=== PATIENT | male | born 1965 | race African-American/Black ===

== ENCOUNTER → 2017-01-31 | Day surgery (SDC) | payer MEDICAID ==
[~2017-01-31] VITALS: Ht 180.3 cm; Wt 145.4 kg
[~2017-01-31] MED LIST: ALPR.5 PO; BUPIVACAINE HCL PF 0.5% 30 ML VIAL NERV BLOCK ONE; BUPIVACAINE HCL PF 0.5% 30 ML VIAL ONE; DEXT 5%-NACL 0.45% 1000 ML INJ 1,000 ML IV SCH; DICL75TA PO; FAMOTIDINE 20 MG/2 ML VIAL ONE; IBUP800T23 PO; IBUPROFEN 800 MG TAB ONE; LACTATED RINGER'S 1000 ML INJ 1,000 ML ONE; METOCLOPRAMIDE HCL 10 MG/2 ML VIAL ONE; MIDAZOLAM HCL 5 MG/ML VIAL (1 ML) ONE; ONDANSETRON HCL 4 MG/2 ML VIAL ONE; PERC5TAB12 PO; POVIDONE IODINE 10% OINT 1 PACKET TOPICAL ONE; PROPOFOL 200 MG/20 ML AMP IV ONE; RANI150T PO; SODIUM CHLORIDE 0.9% FLUSH 5 ML FLUSH IVF PRN; SODIUM CHLORIDE 0.9% FLUSH 5 ML FLUSH IVF SCH; ceFAZolin 2 GM PREMIX 50 ML ONE
[2017-01-31 09:12] VITALS: BP 120/79; PULSE 61; RESP 24; TEMP 98.3; O2SAT 97
[2017-01-31 09:37] LABS: HEMATOCRIT 41.8 % (39.0-51.0); MEAN CELL VOLUME 93.3 FL (80.0-100.0); MEAN CORPUSCULAR HEMOGLOBIN 30.9 PG (27.0-34.0); PLATELET COUNT 166 TH/MM3 (150-450); RED BLOOD COUNT 4.48 MIL/MM3 (4.50-5.90); RED CELL DISTRIBUTION WIDTH 13.7 % (11.6-17.2); REVIEW FLAG FINAL; WHITE BLOOD COUNT 5.9 TH/MM3 (4.0-11.0)
[2017-01-31 11:00] VITALS: PULSE 48
--- NOTE | 2017-01-31 11:52 | HP.UPD ---
H&P Update Date: Jan 31, 2017 Note The Pre-Admit History and Physical Examination regarding the above named patient was reviewed (including, but not limited to, vital signs, medications, allergies, co-morbid conditions), and upon re-examination it is noted that: Indicated with "X" x - the patient's condition has not significantly changed since the last examination. [] - the patient's condition has changed since the last examination. Changes: Tiffanie Garg MD Jan 31, 2017 11:52
--- NOTE | 2017-01-31 16:23 | HHI.PR ---
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 Four-corner fusion of the right wrist with insertion of k-wire. Complications: n/a Specimen(s) removed: n/a Estimated blood loss: 10mL Anesthesia: General Drains: None Tourniquet time (min at mmHg) 148 minutes at 250mmHg, 15 minute break, 42 minutes at 250mmHg Patient to: PACU Patient Condition: Good Date/Time of Procedure: SEE SURGICAL CARE RECORD Ester Reynolds Jan 31, 2017 16:23
[2017-01-31 16:36] VITALS: PULSE 89
[2017-01-31 17:15] VITALS: PULSE 82; TEMP 98.5
[2017-01-31 18:00] VITALS: BP 130/72; PULSE 79; RESP 16; O2SAT 99
--- NOTE | 2017-01-31 23:34 | MP ---
cc: ZANDER SANTIAGO MD DATE OF SURGERY 01/31/17 PREOPERATIVE DIAGNOSIS 1. 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 2. Right carpal tunnel syndrome. POSTOPERATIVE DIAGNOSIS 1. 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 2. Right carpal tunnel syndrome. PROCEDURE 1. Four corner fusion of the right wrist with autograft. 2. Open release of the right carpal tunnel ANESTHESIA General SURGEON Mey Santiago MD SEC[employer] GUARDS DISPATCHER Yaritza Reynolds PA-C INDICATIONS A 51 year old male with injury to the scaphoid causing collapse of the wrist. This was most likely a nonunion. There was a significant amount of arthrosis. At the completion of the procedure, the four bones had been fused with autograft. Tourniquet time was 2 hours and 28 minutes with a 15-minute break followed by 42 minutes at 250 mmHg. PROCEDURE IN DETAIL The patient was seen preoperatively where the sites and side were identified and marked. The patient was then taken to the operating room, placed in a supine position. His identity was checked against the arm band and the consent form, site and side confirmed, time-out called prior to beginning the procedure. The right upper extremity was prepped with Hibiclens and draped in the usual sterile fashion. The area to be incised was outlined with a marking pen as a longitudinal incision over the carpal tunnel just to the ulnar side of the midline as well as a curvilinear incision over the scaphoid as well as the wrist in the area of the lunate. The arm was exsanguinated. The tourniquet inflated to 250 mmHg Attention was first turned to the carpal tunnel where an incision was made down through the skin down to the subcutaneous tissue down to the palmar fascia. Distally a small hole was poked in the palmar fascia using the ulnar artery as a guide. The Guyon's canal was released. The ulnar artery and nerve were retracted ulnarly. Median nerve retracted medially and, using the ring finger as a guide, the transverse carpal ligament was divided. Once the forearm fascia was reached, the scissor was kept in a slightly open position. Using the push technique, released for several centimeters into the distal forearm. The median nerve was then carefully from the carpal tunnel. The wound was then closed with running 4-0 nylon suture. Attention was then turned to the dorsal aspect of the wrist where an incision was made down through the skin down to the subcutaneous tissue exposing the scaphoid which was then removed in piecemeal. The area over the perilunate area was then debrided of scar tissue and the cortical cancellus bone was denuded, four of the four bones. The capitate lunate, hamate and triquetrum. Once they were completely denuded including articulations between the triquetrum and the lunate, the capitate and hamate, they were fixed with an 0.062 K-wire. The reamer was then used to ream an area for the plate. The plate was then fit into place, held in place with the K-wires. Just prior to placing the plate, the bone graft which has been harvested previously was placed into the areas to be fused. The screws were then placed, checked with the mini C-arm. There was excellent fixation. The area was infiltrated with Bupivacaine 0.5% plain. The wounds were closed with Vicryl to the deep layers and nylon to the skin. Tourniquet was then released after 42 minutes. ADditionally, there had been 148 minutes during the procedure where the tourniquet was let down and, after 15 minutes, the arm was elevated and the tourniquet was placed back up. Once the wounds were closed, the tourniquet was released. Pressure was applied. After several minutes, there was no evidence of any oozing. A dressing was applied using povidone-iodine ointment, Adaptic, Telfa, 4x4s, fluffy gauze hand wrap and splint. The patient was then taken from the operating room to the recovery room in satisfactory condition having tolerated the procedure well. Postoperative instructions include keeping the arm elevated, keeping it clean and dry and returning in several days for follow up. The patient was given a right upper extremity block prior to the surgery for postoperative pain. MD TEO Whitten/ /4:39 PM /11:20 PM
--- NOTE | 2017-02-02 10:14 | EKG ---
Date Performed: 01/31/2017 Time Performed: 09:44:18 PTAGE: 51 years EKG: Sinus bradycardia. Rightward axis Poor R wave progression - probable normal variant Borderl ine ECG PREVIOUS TRACING : 06/27/2015 11.03 DOCTOR: Cruz Askew Interpretating Date/Time 02/02/2017 09:55:51
== END | disposition home or self-care (01) ==
LOC: PHSDC 08:22
PROVIDERS: ATTEND Specialist
DX: S62.001K Unspecified fracture of navicular [scaphoid] bone of right wrist, subsequent encounter for fracture with nonunion (principal); G56.01 Carpal tunnel syndrome, right upper limb; Z01.818 Encounter for other preprocedural examination; Z01.810 Encounter for preprocedural cardiovascular examination
CPT/HCPCS: 01830; 25825; 36415; 64415; 76000; 85027; 93005; C1713; J0690; J2250; J2405; J2765; J7120

== ENCOUNTER 2017-03-17 09:05 | Emergency (ER) | payer MEDICAID ==
[~2017-03-17] VITALS: Ht 180.3 cm; Wt 140.0 kg
[~2017-03-17 09:05] MED LIST changes: -ALPR.5 PO; -BUPIVACAINE HCL PF 0.5% 30 ML VIAL NERV BLOCK ONE; -BUPIVACAINE HCL PF 0.5% 30 ML VIAL ONE; -DEXT 5%-NACL 0.45% 1000 ML INJ 1,000 ML IV SCH; -DICL75TA PO; -FAMOTIDINE 20 MG/2 ML VIAL ONE; -IBUP800T23 PO; -IBUPROFEN 800 MG TAB ONE; -LACTATED RINGER'S 1000 ML INJ 1,000 ML ONE; -METOCLOPRAMIDE HCL 10 MG/2 ML VIAL ONE; -MIDAZOLAM HCL 5 MG/ML VIAL (1 ML) ONE; -ONDANSETRON HCL 4 MG/2 ML VIAL ONE; -PERC5TAB12 PO; -POVIDONE IODINE 10% OINT 1 PACKET TOPICAL ONE; -PROPOFOL 200 MG/20 ML AMP IV ONE; -SODIUM CHLORIDE 0.9% FLUSH 5 ML FLUSH IVF PRN; -SODIUM CHLORIDE 0.9% FLUSH 5 ML FLUSH IVF SCH; -ceFAZolin 2 GM PREMIX 50 ML ONE
[2017-03-17 09:09] VITALS: BP 136/92; PULSE 54; RESP 20; TEMP 98.5; O2SAT 97
[2017-03-17] MEDS ORDERED: ONDANSETRON HCL 4 MG/2 ML VIAL IVP ONE (09:45)
[2017-03-17] MEDS ORDERED: HYDROmorphone HCL PF 1 MG/ML VIAL IVS ONE (09:45)
[2017-03-17] MEDS ORDERED: KETOROLAC TROMETHAMINE 30 MG/ML (IVP) VIAL IVP ONE (09:45)
[2017-03-17] MEDS ORDERED: SODIUM CHLORIDE 0.9% FLUSH 10 ML FLUSH IVF PRN (09:45)
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
--- NOTE | 2017-03-17 10:23 | RADRPT ---
EXAM DATE/TIME: 03/17/2017 10:05 [facility] COMPARISON: No previous studies available for comparison. INDICATIONS : Left flank pain. ORAL CONTRAST: No oral contrast ingested. RADIATION DOSE: 12.72 CTDIvol (mGy) MEDICAL HISTORY : Hypertension. HIV. SURGICAL HISTORY : Appendectomy. left hip ENCOUNTER: Initial ACUITY: 1 day PAIN SCALE: 5/10 LOCATION: Left flank TECHNIQUE: Volumetric scanning of the abdomen and pelvis was performed. Using automated exposure control and ad justment of the mA and/or kV according to patient size, radiation dose was kept as low as reasonably achievable to obtain optimal diagnostic quality images. DICOM format image data is available electro nically for review and comparison. FINDINGS: LOWER LUNGS: The visualized lower lungs are clear. LIVER: Homogeneous density without lesion. There is no dilation of the biliary tree. Cholelithiasis is note d. SPLEEN: Normal size without lesion. PANCREAS: Within normal limits. KIDNEYS: Normal in size and shape. There is no mass, stone, or hydronephrosis. ADRENAL GLANDS: Within normal limits. VASCULAR: There is no aortic aneurysm. BOWEL/MESENTERY: The stomach, small bowel, and colon demonstrate no acute abnormality. There is no free intraperitone al air or fluid. ABDOMINAL WALL: Within normal limits. RETROPERITONEUM: There is no lymphadenopathy. BLADDER: No wall thickening or mass. REPRODUCTIVE: Within normal limits. INGUINAL: There is no lymphadenopathy or hernia. MUSCULOSKELETAL: Degenerative changes and scoliosis of the thoracolumbar spine are noted. CONCLUSION: 1. No acute obstructive uropathy. 2. Cholelithiasis. 3. Degenerative changes and scoliosis of the thoracolumbar spine. Dimitry Trent MD on March 17, 2017 at 10:16 Board Certified Radiologist. This report was verified electronically.
[2017-03-17 10:33] LABS: BLOOD, URINE NEG (NEG); COMMENT (UR) CULT NOT INDICATED; CULTURE IF INDICATED CULT NOT INDICATED; GLUCOSE,URINE NEG (NEG); KETONE, URINE NEG (NEG); MUCUS URINE FEW /lpf (OCC); NITRITE,URINE NEG (NEG); PH, URINE 5.5 (5.0-8.5); SQUAMOUS EPITHELIAL CELL URINE <1 /hpf (0-5); URINE COLOR YELLOW (YELLW/STRAW)
[2017-03-17] MEDS ORDERED: IBUP800T23 PO (10:57)
[2017-03-17] MEDS ORDERED: ULTR50TA5 PO (10:57)
[2017-03-17] MEDS ORDERED: CYCL1TAB29 PO (10:57)
[2017-03-17 11:03] VITALS: BP 132/78
== END 2017-03-17 11:50 | disposition home or self-care (01) ==
LOC: NEPD 09:05
DX: K80.20 Calculus of gallbladder without cholecystitis without obstruction (principal); M41.9 Scoliosis, unspecified; M13.88 Other specified arthritis, other site; I10 Essential (primary) hypertension; Z21 Asymptomatic human immunodeficiency virus [HIV] infection status; Z88.2 Allergy status to sulfonamides
CPT/HCPCS: 74176; 81001; 96374; 96375; 99285; J1170; J1885; J2405